=== PATIENT | female | born 1955 | race Caucasian/White ===

== ENCOUNTER 2016-10-01 18:04 | Emergency (ER) | payer MEDICAID, OTHER ==
[~2016-10-01] VITALS: Wt 69.0 kg
[2016-10-01] MEDS ORDERED: HYDROCODONE/APAP (5/325) TAB PO STA (19:29)
[2016-10-01] MEDS ORDERED: LIDOCAINE 2%/EPI MPF (SDV) 20 ML VIAL INJ STA (19:29)
[2016-10-01] MEDS ORDERED: DIPHTH/TET/ACEL PERTUSS (ADULT) 0.5 ML VIAL IM ONE (19:30)
--- NOTE | 2016-10-01 20:30 | RADRPT ---
PROCEDURE: XR Forearm. CLINICAL INDICATION: laceration. r/o foreign body TECHNIQUE: AP and lateral views of the right forearm were obtained. COMPARISON: No prior studies are available for comparison. FINDINGS: There is normal mineralization and alignment. No fracture or osseous lesion is identified. There is a soft tissue defect over the dorsal proximal ulnar diaphysis. No radiopaque foreign bodies are cristian ntified. IMPRESSION: Soft tissue defect over the dorsal proximal ulnar diaphysis. No radiopaque foreign bodies are ident ified. RPTAT:AAJJ Physician Gilma Date Time Electronically viewed and signed by John Paul Kline Physician on 10/01/2016 20:29 LASHON/
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
[2016-10-01] MEDS ORDERED: CLIN-73 PO (23:22)
[2016-10-01] MEDS ORDERED: HYDR-906 PO (23:23)
[2016-10-01] MEDS ORDERED: IBUP400T22 PO (23:24)
[2016-10-01 23:40] VITALS: BP 140/65; PULSE 74; RESP 17; TEMP 98.2
== END 2016-10-01 23:55 | disposition home or self-care (01) ==
LOC: FTE 18:04
DX: S51.811A Laceration without foreign body of right forearm, initial encounter (principal); Y08.89XA Assault by other specified means, initial encounter; Z23 Encounter for immunization
CPT/HCPCS: 12002; 73090; 90715; Z7610; 90471

== ENCOUNTER 2016-10-03 11:33 | Emergency (ER) | payer MEDICAID ==
[~2016-10-03] VITALS: Ht 152.4 cm; Wt 78.0 kg
[~2016-10-03 11:33] MED LIST: CLIN-73 PO; HYDR-906 PO; IBUP400T22 PO
[2016-10-03 11:45] VITALS: Ht 152.4 cm; Wt 78.0 kg
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
== END 2016-10-03 12:36 | disposition left against medical advice (07) ==
LOC: FTE 11:33
DX: Z48.01 Encounter for change or removal of surgical wound dressing (principal)
CPT/HCPCS: 99281

== ENCOUNTER 2016-10-10 12:14 | Emergency (ER) | payer MEDICAID ==
[~2016-10-10] VITALS: Ht 157.5 cm; Wt 80.5 kg
[2016-10-10 12:22] VITALS: Ht 157.5 cm; Wt 80.5 kg
[2016-10-10] MEDS ORDERED: PRED20TA PO (13:41)
[2016-10-10] MEDS ORDERED: BEN25 PO (13:41)
[2016-10-10] MEDS ORDERED: HC30CR25 TOP (13:42)
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
== END 2016-10-10 14:31 | disposition home or self-care (01) ==
LOC: FTE 12:14
DX: R21 Rash and other nonspecific skin eruption (principal); Z48.02 Encounter for removal of sutures
CPT/HCPCS: 99283